=== PATIENT | male | born 1950 | race Caucasian/White ===

== ENCOUNTER 2019-11-13 05:02 | Inpatient (IN) ==
--- NOTE | 2019-10-17 14:52 | PAT Medication Instructions ---
Medication Instructions Date of Service October 17, 2019 Home Medications alprazolam 0.5 mg PO UD PRN 10/16/19 [History Confirmed 10/16/19] amlodipine 5 mg PO QAM 10/16/19 [History Confirmed 10/16/19] aspirin [Aspir-81] 81 mg PO DAILY 10/16/19 [History Confirmed 10/16/19] atenolol 25 mg PO QAM 10/16/19 [History Confirmed 10/16/19] atorvastatin 10 mg PO QAM 10/16/19 [History Confirmed 10/16/19] epinephrine [EpiPen] 0.3 mg IM UD PRN 10/16/19 [History Confirmed 10/16/19] irbesartan 150 mg PO QAM 10/16/19 [History Confirmed 10/16/19] latanoprost 1 drp OPHTHALMIC (EYE) HS 10/16/19 [History Confirmed 10/16/19] metformin 500 mg PO BID 10/16/19 [History Confirmed 10/16/19] timolol maleate 1 drp OPHTHALMIC (EYE) BID 10/16/19 [History Confirmed 10/16/19] Continue as directed epinephrine [EpiPen] 0.3 mg IM UD PRN(if needed) DO NOT take the morning of surgery irbesartan 150 mg PO QAM 10/16/19 [History Confirmed 10/16/19] metformin 500 mg PO BID 10/16/19 [History Confirmed 10/16/19] Take morning of surgery With a small sip of water, OTHERWISE NOTHING TO EAT OR DRINK AFTER MIDNIGHT: alprazolam 0.5 mg PO UD PRN (if needed) amlodipine 5 mg PO QAM 10/16/19 [History Confirmed 10/16/19] aspirin [Aspir-81] 81 mg PO DAILY 10/16/19 [History Confirmed 10/16/19] atenolol 25 mg PO QAM 10/16/19 [History Confirmed 10/16/19] atorvastatin 10 mg PO QAM 10/16/19 [History Confirmed 10/16/19] timolol maleate 1 drp OPHTHALMIC (EYE) BID 10/16/19 [History Confirmed 10/16/19] Take evening before surgery alprazolam 0.5 mg PO UD PRN (if needed) latanoprost 1 drp OPHTHALMIC (EYE) HS 01/07/20 [History Confirmed 10/16/19] metformin 500 mg PO BID 10/16/19 [History Confirmed 10/16/19] timolol maleate 1 drp OPHTHALMIC (EYE) BID 10/16/19 [History Confirmed 10/16/19] Other Notes If you have any questions please call us at [phone] or [phone] or [phone] or [phone]
--- NOTE | 2019-10-18 11:55 | Anesthesiology Consultation ---
Date of Service October 18, 2019 Assessment & Plan (1) Encounter for pre-operative examination: - Check BSG AM DOS Chart Review Chart Review: Acceptable Risk for Surgery (pending surgeon-ordered PCP clearance scheduled 10/31 (Dr. Hassan)) and Patient seen in Pre Admission Testing Teaching & Discussion Pre-Anesthesia Teaching/Discussion Notes: Instructed NPO after midnight before s urgery,except medications with 15 cc of water. Medication instructions provided according to the PAT guidelines. History Surgery Operation Date: 11/13/19 07:15 Proposed Procedures p Right Anterior Total Hip Arthroplasty - José Damon DO Height/Weight Height: 5 ft 6 in Weight: 62.9 kg Allergies Allergy/AdvReac Type Severity Reaction Status Date / Time BEE STINGS Allergy Severe ANAPHYLACTIC Uncoded 10/16/19 10:42 SHOCK Medications Home Medications Medication Instructions Recorded Confirmed Last Taken alprazolam 0.5 mg PO UD PRN 10/16/19 10/16/19 Unknown amlodipine 5 mg PO QAM 10/16/19 10/16/19 Unknown aspirin [Aspir-81] 81 mg PO DAILY 10/16/19 10/16/19 Unknown atenolol 25 mg PO QAM 10/16/19 10/16/19 Unknown atorvastatin 10 mg PO QAM 10/16/19 10/16/19 Unknown epinephrine [EpiPen] 0.3 mg IM UD PRN 10/16/19 10/16/19 Unknown irbesartan 150 mg PO QAM 10/16/19 10/16/19 Unknown latanoprost 1 drp OPHTHALMIC (EYE) HS 10/16/19 10/16/19 Unknown metformin 500 mg PO BID 10/16/19 10/16/19 Unknown timolol maleate 1 drp OPHTHALMIC (EYE) BID 10/16/19 10/16/19 Unknown Past Medical History Medical History Anxiety Diabetes NIDDM Glaucoma History of back problems lumbar region History of blood clots right calf related to trauma/injury (45+ years ago) History of osteoarthritis History of palpitations remotely on atenolol, med since discontinued/no palpitations recurrence Hyperlipidemia Hypertension Exercise / Class Metabolic Activity II 4-5 Yardwork/Stairs/Walk up hill (ONE FLIGHT OF STAIRS (NO CHEST PAIN/NO SOB)) Past Family History Family History Brother Family history of diabetes mellitus Past Surgical History Surgical History History of colonoscopy Past Anesthesia History No Hx of Anesthesia Complications and No Family Hx of Anesthesia Complications History of PONV No Hx of PONV and Hx of Motion Sickness Social History Smoking Status: Never smoker Do You Dip or Chew Tobacco: Yes (1/2 CAN DAILY, ADVISED NPO AM DOS) Hx Alcohol Use: Yes Alcohol type: beer (no ETOH use x 3 months) Hx Substance Use: No substance use type: does not use Review of Systems Patient denies chest pain, shortness of breath, dyspnea on exertion, cough, wheezing, palpitations. Physical Exam Vital Signs VITALS BP 140/92 P 81 TEMP 98.2 SP02 98%RA RESP 18 PHYSICAL Full neck and c-spine range of motion. Full TMJ range of motion. TMD 3 finger breaths Mallampati Score 3 Dentition: poor, rotted dentition, upper front missing tooth Lungs: clear throughout to auscultation Cardiac: regular rate and rhythm, no murmurs noted Spine: normal Carotid arteries: negative bruit Extremities: no edema Trimmed castle Testing Laboratory Results 10/18/19 12:31 10/18/19 12:31 PT 10.1 Seconds (9.0-12.0) 10/18/19 12:31 INR 1.0 (0.9-1.1) 10/18/19 12:31 APTT 26.4 Seconds (21.0-31.0) 10/18/19 12:31 Hemoglobin A1c 5.9 % (4.5-5.6) H 10/18/19 12:31 Urine Color Yellow 10/18/19 12:31 Urine Appearance Clear (Clear) 10/18/19 12:31 Urine pH 6.0 (4.5-7.5) 10/18/19 12:31 Ur Specific Mackey 1.021 (1.000-1.030) 10/18/19 12:31 Urine Protein 2+ (Negative) H 10/18/19 12:31 Urine Glucose (UA) Negative (Negative) 10/18/19 12:31 Urine Ketones Negative (Negative) 10/18/19 12:31 Urine Nitrite Negative (Negative) 10/18/19 12:31 Ur Leukocyte Esterase Negative (Negative) 10/18/19 12:31 Urine WBC (Auto) 1-5 /hpf (0-5) 10/18/19 12:31 Urine RBC (Auto) 5-10 /hpf (0-4) H 10/18/19 12:31 U Hyaline Cast (Auto) 1-5 /lpf (0-5) 10/18/19 12:31 U Epithel Cells (Auto) 0-5 /lpf (0-5) 10/18/19 12:31 Urine Bacteria (Auto) Negative (Negative) 10/18/19 12:31 Blood Type O Negative 10/18/19 12:31 Antibody Screen NEGATIVE 10/18/19 12:31 Electrocardiogram Date: 10/18/19 NSR at 75bpm. NS TWA. Chest X-Ray Date: 10/18/19 The cardiac and mediastinal contours are normal. There is no evidence of focal pulmonary consolidation. There is no evidence of failure. No pleural effusions are visualized.[There is a tiny left lower lobe calcified granuloma versus rib bone island. Rounded opacities within each mid lung zone are felt to represent nipple shadows. IMPRESSION: No active disease in the chest.
--- NOTE | 2019-10-18 13:07 | XRay Report ---
XR chest Pre-admission PA/Lat CLINICAL HISTORY: Preoperative chest COMPARISON STUDY: No previous studies for comparison. FINDINGS: The cardiac and mediastinal contours are normal. There is no evidence of focal pulmonary co nsolidation. There is no evidence of failure. No pleural effusions are visualized.[There is a tiny le ft lower lobe calcified granuloma versus rib bone island. Rounded opacities within each mid lung zone are felt to represent nipple shadows. IMPRESSION: No active disease in the chest. ACT 112: Negative or not required by law. Electronically signed by: Velasquez Jarvis M.D. 10/18/2019 1:06 PM
[2019-10-18 13:43] LABS: Basophils # (auto) 0.03 K/uL (0-0.2); Basophils % (auto) 0.4 %; Eosinophils # (auto) 0.03 K/uL (0-0.5); Eosinophils % (auto) 0.4 %; Hematocrit (blood only) 42.4 % (42-52); Hemoglobin 14.1 g/dL (14.0-18.0); Immature Granulocytes # (auto) 0.03 K/uL (0.00-0.02); Immature Granulocytes % (auto) 0.4 %; Lymphocytes % (auto) 20.8 %; Mean Corpuscular Hemoglobin 30.1 pg (25-34); Mean Corpuscular Hgb Conc 33.3 g/dL (32-36); Mean Corpuscular Volume 90.6 fL (80-100); Mean Platelet Volume 9.4 fL (7.4-10.4); Monocytes # (auto) 0.68 K/uL (0.11-0.59); Monocytes % (auto) 8.3 %; Neutrophils # (auto) 5.72 K/uL (1.4-6.5); Neutrophils % (auto) 69.7 %; Platelet Count 313 K/uL (130-400); RDW Coefficient of Variation 13.5 % (11.5-14.5); RDW Standard Deviation 43.9 fL (36.4-46.3); Red Blood Count 4.68 M/uL (4.7-6.1); White Blood Count 8.19 K/uL (4.8-10.8)
[2019-10-18 13:49] LABS: Partial Thromboplastin Time 26.4 Seconds (21.0-31.0); Prothrombin Time 10.1 Seconds (9.0-12.0)
[2019-10-18 13:52] LABS: Estimated Average Glucose 123 mg/dl; Hemoglobin A1C 5.9 % (4.5-5.6)
[2019-10-18 14:15] LABS: Appearance Urine Clear (Clear); Bacteria Urine Automated Negative (Negative); Bilirubin Urine Negative (Negative); Blood Urine Negative (Negative); Color Urine Yellow; Epithelial Cell Urine Auto 0-5 /lpf (0-5); Glucose Urine UA Negative (Negative); Ketones Urine Negative (Negative); Leukocyte Esterase Urine Negative (Negative); Nitrite Urine Negative (Negative); Protein Urine 2+ (Negative); Specific Gravity Urine 1.021 (1.000-1.030); Urobilinogen Urine Negative (Negative)
[2019-10-18 15:30] LABS: Albumin Level 3.8 gm/dl (3.4-5.0); BUN Creatinine Ratio 14.3 (10-20); Calcium 10.3 mg/dl (8.5-10.1); Creatinine Clr Calc Pharmacy 92.4 ml/min; Est GFR (African American) 113.9; Est GFR (Non-African American) 98.2; Potassium 4.1 mmol/L (3.5-5.1)
--- NOTE | 2019-10-19 06:09 | Electrocardiogram Report ---
Test Reason : Blood Pressure : / mmHG Vent. Rate : 075 BPM Atrial Rate : 075 BPM P-R Int : 150 ms QRS Dur : 076 ms QT Int : 368 ms P-R-T Axes : 058 043 005 degrees QTc Int : 410 ms Normal sinus rhythm Nonspecific T wave abnormality No previous ECGs available Confirmed by Ugo Byrne ([id number]) on 10/19/2019 6:09:14 AM Referred By: José Damon Confirmed By:Ugo Byrne
--- NOTE | 2019-11-12 20:21 | History & Physical Report ---
Date of Service November 12, 2019 Assessment & Plan (1) Degenerative joint disease of right hip: I have indicated the patient for right anterior total hip replacement. The risks, benefits and complications of surgery were explained to the patient which include but not limited to infection, acute blood loss, DVT/PE, injury to nerves, vessels, bone, soft tissue, arthrofibrosis, chronic pain, failure of the prosthesis, hip dislocation, leg length discrepancy, need for additional surgery, cardiac and pulmonary events and . The patient wished to proceed with surgery and informed consent was obtained at this time. We will plan for 81mg ASA BID post-operatively for DVT prophylaxis. Upon discharge the patient will be discharged home with home health services. Appropriate clearances by PCP were obtained. History of Present Illness Chief Complaint: Right hip pain/djd Primary Care Provider: Kaye Hassan MD The patient is a 69 year old male who presents with complaints of severe right hip pain and DJD. The patient has failed outpatient conservative treatments to this point which included NSAIDs, home exercise/walking program, patient declined further conservative treatments including IA corticosteroid injection. The patient's pain and limited function have progressed to the point where they severely hinder their activities of daily living and they no longer tolerate exercise programs. They are requesting to proceed with total hip replacement surgery. Allergies Allergy/AdvReac Type Severity Reaction Status Date / Time BEE STINGS Allergy Severe ANAPHYLACTIC Uncoded 11/13/19 05:33 SHOCK Home Medications Home Medications Medication Instructions Recorded Confirmed Type alprazolam 0.5 mg PO UD PRN 10/16/19 11/13/19 History amlodipine 5 mg PO QAM 10/16/19 11/13/19 History atenolol 25 mg PO QAM 10/16/19 11/13/19 History atorvastatin 10 mg PO QAM 10/16/19 11/13/19 History epinephrine [EpiPen] 0.3 mg IM UD PRN 10/16/19 11/13/19 History irbesartan 150 mg PO QAM 10/16/19 11/13/19 History latanoprost 1 drp OPHTHALMIC (EYE) HS 10/16/19 11/13/19 History metformin 500 mg PO BID 10/16/19 11/13/19 History timolol maleate 1 drp OPHTHALMIC (EYE) BID 10/16/19 11/13/19 History ibuprofen 600 mg PO Q6H PRN 11/13/19 11/13/19 History Past Med/Surg History Medical History Anxiety Diabetes NIDDM Glaucoma History of back problems lumbar region History of blood clots right calf related to trauma/injury (45+ years ago) History of osteoarthritis History of palpitations remotely on atenolol, med since discontinued/no palpitations recurrence Hyperlipidemia Hypertension Surgical History History of colonoscopy Family History Brother Family history of diabetes mellitus Social History Preferred Language: [place]ib[place] Communication Ability: Effective Automotive Service Director Required: No Beliefs That Will Affect Care: None Current Living Situation: Spouse, Family and Other Current Living Situation Comment: [facility] Other Information That Helps Us Care for You: No Feels Safe at Home: Yes Smoking Status: Never smoker Do You Dip or Chew Tobacco: Yes (1/2 CAN DAILY, ADVISED NPO AM DOS) ; Hx Alcohol Use: Yes Alcohol type: beer (no ETOH use x 3 months) Hx Substance Use: No Review of Systems Review of Systems: All systems reviewed & are unremarkable except as noted in HPI & below Constitutional: as per Subjective / HPI Physical Exam Physical Exam: RLE NVSI +EHL/FHL/TA/GS SILT grossly, +2 DP pulse, compartments soft NT, limited painful ROM, antalgic gait. Constitutional: WD/WN, vitals as above Eyes: PERRL, conjunctivae normal, anicteric sclerae ENMT: external ear and nose normal, oropharynx normal Neck: trachea midline, no thyromegaly Respiratory: normal respiratory effort, lungs clear to auscultation Cardiovascular: RRR, no murmur, no edema Gastrointestinal (Abdomen): normal bowel sounds, soft, nontender, no hepatosplenomegaly Musculoskeletal: no cyanosis or clubbing, extremities motor strength 5/5 Skin: no rashes, warm and dry Neurologic: patellar DTR's 2+ bilat, sensation intact Psychiatric: A+Ox3, euthymic affect Lymphatic: no cervical or axillary lymphadenopathy Results & Data Diagnostic Findings Multiple views of the hip demonstrates severe DJD with complete loss of the joint space. +osteophytes, +sclerosis, +subchondral cysts.
[2019-11-13] MEDS ORDERED: ROPIVACAINE 0.5% HCL/PF 150 MG, BUPIVACAINE 0.5% MPF 30 ML, EPINEPHrine 30MG/30ML (OR U... INFIL SCH (06:00)
[2019-11-13] MEDS ORDERED: LR 500ML BOLUS, THEN 15ML/HR IV SCH (06:00)
[2019-11-13] MEDS ORDERED: GABAPENTIN 300 MG CAP PO SCH (06:00)
[2019-11-13] MEDS ORDERED: FAMOTIDINE 20 MG TAB PO SCH (06:00)
[2019-11-13] MEDS ORDERED: CeleBREX 200 MG CAP PO SCH (06:00)
[2019-11-13] MEDS ORDERED: METOCLOPRAMIDE HCL 10 MG TABLET PO SCH (06:00)
[2019-11-13] MEDS ORDERED: CEFAZOLIN 1000MG 1,000 MG/7.5 ML SYR IV SCH (06:00)
[2019-11-13] MEDS ORDERED: TRANEXAMIC ACID 1,000 MG **IV Intra-op IV SCH (06:00)
[2019-11-13] MEDS ORDERED: TRANEXAMIC ACID 1,000 MG **IV Pre-op IV SCH (06:00)
[2019-11-13] MEDS ORDERED: dexAMETHasone 4 MG TAB PO SCH (06:00)
[2019-11-13] MEDS ORDERED: ACETAMINOPHEN 500 MG TAB PO SCH (06:00)
[2019-11-13] MEDS ORDERED: BUPIVACAINE 0.5 % 5 MG/1 ML PF 10ML VIAL ONE (06:35)
[2019-11-13] MEDS ORDERED: GLYCOPYRROLATE 0.2 MG/ML VIAL ONE (06:38)
[2019-11-13] MEDS ORDERED: LIDOCAINE HCL 2% 2 ML VIAL/AMP(20MG/ML) INFIL ONE (06:38)
[2019-11-13] MEDS ORDERED: KETAMINE HCL INJ 50 MG/ML 10 ML VIAL ONE (06:38)
[2019-11-13] MEDS ORDERED: ONDANSETRON INJ 2 MG/ML 2 ML VIAL ONE (06:38)
[2019-11-13] MEDS ORDERED: DEXAMETHASONE SOD INJ 4 MG/ML VIAL ONE (06:38)
[2019-11-13] MEDS ORDERED: MIDAZOLAM HCL 1 MG/ML 2ML VIAL ONE (06:38)
[2019-11-13] MEDS ORDERED: PROPOFOL IV EMULSION 10 MG/ML 20 ML VIAL IV ONE (06:38)
[2019-11-13] MEDS ORDERED: BACITRACIN INJ 50,000 UNIT VIAL ONE (06:59)
[2019-11-13] MEDS ORDERED: ORTHO JOINT ANESTHETIC ONE (06:59)
--- NOTE | 2019-11-13 07:08 | History & Physical Bridge Note ---
Date of Service November 13, 2019 History & Physical Bridge Note I have examined the patient, reviewed the History & Physical and in the interval since the performance of the History & Physical I have noted the following changes of clinical significance: no changes noted
[2019-11-13] MEDS ORDERED: fentaNYL citrate 100 MCG/2 ML VIAL IV PRN (07:14)
[2019-11-13] MEDS ORDERED: ONDANSETRON INJ 2 MG/ML 2 ML VIAL IV PRN ×2 (07:14→10:39)
[2019-11-13] MEDS ORDERED: ePHEDrine sulfate 50 MG/ML AMP IV PRN (07:14)
[2019-11-13] MEDS ORDERED: ATROPINE SULFATE 0.1 MG/ML 10ML SYR IV PRN (07:14)
--- NOTE | 2019-11-13 09:10 | Post Operative Brief Note ---
Immediate Post Op Note v1 Date of Surgery November 13, 2019 Pre & Post Diagnosis Operation Date: 11/13/19 07:15 Pre-Op Diagnosis: Unilateral Primary Osteoarthritis, Right Hip Post-Op Diagnosis: Unilateral Primary Osteoarthritis, Right Hip I identified the patient and participated in the time-out.: Yes Procedure Operation Date: 11/13/19 07:15 Actual Procedures p Right Anterior Total Hip Arthroplasty(Right) - José Damon DO Surgeon José Damon DO Manager Motor Rafy Hilton Estimated Blood Loss 85 Findings Consistent with Post-Op Diagnosis Fluids 1400 cc LR Specimens femoral head Anesthesia Type Spinal MAC Complications none Disposition Disposition: Recovery Room Overlapping Procedure I was present for: the critical portions of procedure. I was immediately available: during the entire case. Back up surgeon: was not required during procedure.
--- NOTE | 2019-11-13 09:12 | Operative Report ---
Post Operative Report Pre & Post Diagnosis Operation Date: 11/13/19 07:15 Pre-Op Diagnosis: Unilateral Primary Osteoarthritis, Right Hip Post-Op Diagnosis: Unilateral Primary Osteoarthritis, Right Hip I identified the patient and participated in the time-out.: Yes Procedure Operation Date: 11/13/19 07:15 Actual Procedures p Right Anterior Total Hip Arthroplasty(Right) - José Damon DO Surgeon José Damon DO Water Resource Agent Rafy Hilton Estimated Blood Loss 85 Findings Consistent with Post-Op Diagnosis Fluids 1400 cc LR Specimens femoral head Anesthesia Type Spinal MAC Complications none Disposition Disposition: Recovery Room Indications The patient is a 69-year-old male who presents with 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 I indicated the patient for a anterior total hip replacement and the risks and benefits were explained in detail which include but not limited to infection, bleeding, blood clot, damage to surrounding bone, nerves, vessels, soft tissue, hip dislocation, failure of the prosthesis, leg length discrepancy, need for additional surgery and . The patient agreed to proceed with replacement of the hip and informed consent was obtained. Appropriate clearances were obtained. Description of Procedure COMPONENTS USED: [employer] hip system: Acetabulum size 54, femur size 4 standard offset, femoral head 36+0, liner [id number], acetabular screw 25 mm x 1. DESCRIPTION OF PROCEDURE: Following satisfactory spinal anesthesia, the patient was placed supine on the OR table. The left leg was placed in the well leg rosas and the right leg in the traction device. The right leg was prepared with ChloraPrep and draped sterilely. A surgical timeout was performed, patient identified and site ravi verified. Appropriate antibiotics were given. A standard anterior approach in the interval between the sartorius and tensor muscles was performed. Dissection was carried down through subcutaneous tissues. Electrocautery was utilized for hemostasis. Circumflex femoral vessels were identified, tied and ligated. The anterior capsular fat pad was removed and the capsulotomy was performed revealing the arthritic femoral neck and head. A femoral neck cut was made with reciprocating saw and the bone fragments removed. The acetabular self-retraining retractor was placed. Acetabular reaming was completed under fluoroscopic guidance, a 54 shell was impacted into an anatomic position and secured with a dome screw. Local anesthetic was placed and following irrigation, the polyethylene liner was placed. The femur was placed into position of external rotation, extension and adduction. Femoral canal was prepared up to the size 4 standard offset. Trial reduction with a +0 neck length head showed good soft tissue tension, leg lengths restored, and good fit and fill of the proximal canal using fluoroscopic landmarks. The hip was dislocated. The trial component was removed. The final implant was placed. The hip was irrigated with sterile saline solution and reduced. A Betadine soak was performed. After 3 minutes, the hip was once more irrigated with copious sterile saline solution with bacitracin. Wendy-incisional soft tissue was injected utilizing [place] [employer] which includes a combination of Ropivicaine 0.5% 150mg, Bupivicaine 0.5%/Epinephrine 1:200,000 30ml, Toradol 30mg, Dexamethasone 4mg, Ketamine 10mg, Clonidine 100mcg and NSS 30ml solution. The capsule was then closed with 1-0 Vicryl interrupted figure of eight sutures. The fascia was closed with a running suture of #1 Vicryl, the subcutaneous tissues with 2-0 Vicryl and the skin with a running subcuticular stitch of 3-0 V-Loc. Dermabond prineo and a dry dressing were applied. The patient tolerated the procedure well and was transported to PACU in stable condition. Due to the complex nature of the procedure, the entire surgery was performed with the operational assistance of Rafy hilton PA-C. The culinary assistant, under direct supervision, was involved in the actual performance of all aspects of the surgical procedure including patient positioning, hemostasis, tissue retraction, instrument management and wound closure. I attest to the content of the Intraoperative Record and any orders documented therein. Any exceptions are noted below.
[2019-11-13] MEDS ORDERED: ePHEDrine sulfate 50 MG/ML SYR ONE (09:16)
--- NOTE | 2019-11-13 09:54 | Fluoroscopy Report ---
FL hip RT 1V CLINICAL HISTORY: RT ANTERIOR HIP COMPARISON STUDY: None. FLUOROSCOPY TIME: 44 seconds. FLUOROSCOPIC IMAGES: 2 FINDINGS: These images demonstrate anatomic alignment of the total right hip arthroplasty. There is a n acetabular screw. No fracture is identified by fluoroscopy. The hardware is intact and there are no unexpected radiopaque foreign bodies. IMPRESSION: Expected findings following total right hip arthroplasty. ACT 112: Negative or not required by law. Electronically signed by: Maximus Arizmendi M.D. 11/13/2019 9:52 AM
--- NOTE | 2019-11-13 10:06 | Anesthesiology Progress Note ---
Date of Service November 13, 2019 Anesthesia Post Procedure Vital Signs Vital Signs: Temp Pulse Pulse Resp BP Pulse Ox 11/13/19 09:55 97.9 F 79 18 127/86 96 11/13/19 09:45 79 15 131/91 96 11/13/19 09:39 97.0 F L 82 15 113/91 95 11/13/19 05:36 97.7 F 68 18 174/104 H 98 Pain Intensity Right Hip: Pain Intensity: 2 Transfer of Care Handoff Completed per policy Notes Mental Status: alert / awake / arousable and participated in evaluation Patient Amnestic to Procedure: Yes Nausea / Vomiting: adequately controlled Pain: adequately controlled Airway Patency, RR, SpO2: stable & adequate BP & HR: stable & adequate Hydration State: stable & adequate Neuraxial Anesthesia: was administered and sensory block is resolving Anesthetic Complications: no major complications apparent and Pt Satisfied with anesthetic care
--- NOTE | 2019-11-13 10:17 | XRay Report ---
XR hip 1V RT w pelvis HISTORY: 69 years-old Male IN PACU - A/P PELVIS and LATERAL HIP right hip total joint arthroplasty. History of degenerative joint disease COMPARISON: None TECHNIQUE: AP view of the pelvis with crosstable lateral view of the right hip FINDINGS: Right hip total joint arthroplasty demonstrates satisfactory alignment. Expected postsurgical soft ti ssue swelling and deep tissue air about the right hip. No acute fracture or retained foreign body. Ar terial calcifications are noted. Moderate left hip osteoarthritis. IMPRESSION: Right hip total joint arthroplasty with expected postoperative findings. ACT 112: Negative or not required by law. The above report was generated using voice recognition software. It may contain grammatical, syntax o r spelling errors. Electronically signed by: Hank Calles M.D. 11/13/2019 10:16 AM
[2019-11-13] MEDS ORDERED: NALOXONE HCL 0.4 MG/1 ML VIAL/CARP IV PRN (10:39)
[2019-11-13] MEDS ORDERED: MAGNESIUM HYDROXIDE SUSP 30 ML UDC PO PRN (10:39)
[2019-11-13] MEDS ORDERED: METOCLOPRAMIDE HCL INJ 5 MG/ML 2 ML VIAL IV PRN (10:39)
[2019-11-13] MEDS ORDERED: bisacodyL 10 MG SUPP PR PRN (10:39)
[2019-11-13] MEDS ORDERED: HYDROmorphone INJ 0.5 MG/0.5 ML SYR IV PRN (10:39)
[2019-11-13] MEDS ORDERED: PHARMACY GLYCEMIC MGMT CONSULT PRN (10:45)
[2019-11-13] MEDS ORDERED: GLUCOSE 40% GEL 15 GM TUBE PO PRN (11:00)
[2019-11-13] MEDS ORDERED: GLUCOSE 10 TABS/TUBE PO PRN (11:00)
[2019-11-13] MEDS ORDERED: GLUCAGON FOR INJ 1 MG VIAL IM PRN (11:00)
[2019-11-13] MEDS ORDERED: CARBOHYDRATES FOR HYPOGLYCEMIA PO PRN (11:00)
[2019-11-13] MEDS ORDERED: DEXTROSE 50% 50 ML SYRINGE IV PRN (11:00)
--- NOTE | 2019-11-13 11:03 | Pharmacy Report ---
Glycemic Control Consultation - Date of Service November 13, 2019 - Scope Scope: Glycemic Pharmacist consulted by Dr Damon on 11/13 for glycemic control and to write orders per [facility] inpatient glycemic control protocol - Objective Weight: 63.185 kg Accuchecks BSG (last 24hrs): 11/13/19 11/13/19 05:45 09:40 POC Glucose 104 H 155 H HbA1c: Hemoglobin A1c 5.9 % (4.5-5.6) H 10/18/19 12:31 - Recent Pertinent Medications Outpatient Anti-diabetic Regimen: * metformin 500 bid * A1c = 5.9 % 10/18/19 Risk Factors for Insulin Resistance: * Steroids: DXM 8 mg po, dxm 4 iv, ortho * Recent Surgery: POD 0 * Diet: T2DM - Assessment & Plan Assessment & Plan: ASSESSMENT: * 69 year old male now s/p total hip arthroplasty. Type 2 diabetic managed on metformin at home * Pharmacy consulted for glycemic management. Patient did receive steroids preop therefore anticipate steroid induced hyperglycemia * Will order both NPH/bolus insulin postop for glycemic control PLAN FOR INPATIENT GLYCEMIC CONTROL: * Holding outpatient oral diabetes medications * Basal insulin * NPH 12 units x 1 (~0.2 units/kg) - to help cover steroids * Bolus insulin * NovoLog per scale ACHS or Q6hrs while NPO * Goal Range: Low 110 mg/dL - High 140 mg/dL * Correction Factor: 30 mg/dL/unit * Nutritional / Prandial insulin per carb ratio of 1 unit per 10 grams CHO consumed * Please note that the plan above was derived based on current level of insulin resistance and hospital stress. These recommendations are appropriate for inpatient admission only. Plan of care upon discharge will need to be reassessed to avoid potential outpatient hypo/hyperglycemia. Thank you.
[2019-11-13] MEDS: SODIUM CHLORIDE 0.9% 1000ML 1,000 ML IV SCH ×2 (11:07→21:27)
[2019-11-13] MEDS: KETOROLAC TROMETHAMINE 15 MG/ML VIAL IV SCH ×3 (11:26→23:47)
[2019-11-13] MEDS ORDERED: NovoLIN-N (NPH) PER UNIT CHARGE SQ ONE (11:30)
[2019-11-13] MEDS: INSULIN ASPART 100 UNITS/ML 3 ML PEN SC SCH ×4 (11:58→23:49)
[2019-11-13] MEDS: ACETAMINOPHEN 500 MG TAB PO SCH ×2 (13:58→21:18)
[2019-11-13] MEDS: CEFAZOLIN 2000MG 2,000 MG/15 ML SYR IV SCH ×2 (13:59→23:39)
--- NOTE | 2019-11-13 20:09 | Orthopedic Progress Note ---
Date of Service November 13, 2019 Assessment & Plan (1) Degenerative joint disease of right hip: s/p R anterior JAZMIN -ancef x 24 -DVT ppx: SCDs, TEDs, 81mg ASA BID -WBAT RLE -PT/OT -PO XR: demonstrates well aligned well fixed prothesis without fracture dislocation -am labs -DC planning Subjective Post Operative Progress Note Patient seen sitting up in bed, comfortable, denies complaints, pain well controlled, no acute issues. Review of Systems Review of Systems: All systems reviewed & are unremarkable except as noted in HPI & below Constitutional: as per Subjective / HPI Physical Exam Physical Exam: RLE NVSI +EHL/FHL/TA/GS SILT grossly, +2 DP pulse, compartments soft NT, dressing cdi. Constitutional: WD/WN, vitals as above Results & Data ([facility]) Vital Signs (Past 12 Hours) Vital Signs Temp Pulse Pulse Pulse Resp BP Pulse Ox 11/13/19 15:37 36.7 C 110 H 18 150/97 H 96 11/13/19 13:24 36.6 C 102 H 18 148/89 H 96 11/13/19 12:09 36.5 C 90 18 142/84 H 97 11/13/19 11:16 74 18 139/85 96 11/13/19 10:49 36.4 C L 73 16 130/88 98 11/13/19 10:41 36.5 C 72 16 126/86 97 11/13/19 10:10 69 18 128/80 96 11/13/19 09:55 36.6 C 79 18 127/86 96 11/13/19 09:45 79 15 131/91 96 11/13/19 09:39 36.1 C L 82 15 113/91 95
[2019-11-13] MEDS ORDERED: SENNA 8.6 MG TAB PO SCH (21:00)
[2019-11-13] MEDS: DOCUSATE SODIUM 100 MG CAP PO SCH (21:17)
[2019-11-13] MEDS: OXYCODONE HCL IR 5 MG TAB (IMMEDIATE RELEASE) PO PRN (21:22)
[2019-11-14] MEDS: INSULIN ASPART 100 UNITS/ML 3 ML PEN SC SCH ×3 (04:04→13:06)
[2019-11-14 05:07] LABS: Basophils # (auto) 0.01 K/uL (0-0.2); Basophils % (auto) 0.1 %; Hemoglobin 9.6 g/dL (14.0-18.0); Immature Granulocytes # (auto) 0.05 K/uL (0.00-0.02); Immature Granulocytes % (auto) 0.4 %; Lymphocytes # (auto) 1.87 K/uL (1.2-3.4); Lymphocytes % (auto) 13.8 %; Mean Corpuscular Hemoglobin 29.5 pg (25-34); Mean Corpuscular Hgb Conc 34.3 g/dL (32-36); Mean Corpuscular Volume 86.2 fL (80-100); Mean Platelet Volume 8.2 fL (7.4-10.4); Monocytes # (auto) 1.32 K/uL (0.11-0.59); Monocytes % (auto) 9.7 %; Platelet Count 311 K/uL (130-400); RDW Coefficient of Variation 13.5 % (11.5-14.5); RDW Standard Deviation 42.5 fL (36.4-46.3); Red Blood Count 3.25 M/uL (4.7-6.1); White Blood Count 13.55 K/uL (4.8-10.8)
[2019-11-14 05:31] LABS: BUN Creatinine Ratio 14.2 (10-20); Creatinine Clr Calc Pharmacy 86.6 ml/min; Est GFR (African American) 110.5; Est GFR (Non-African American) 95.3; Potassium 3.9 mmol/L (3.5-5.1)
[2019-11-14] MEDS: KETOROLAC TROMETHAMINE 15 MG/ML VIAL IV SCH (06:20)
[2019-11-14] MEDS: ACETAMINOPHEN 500 MG TAB PO SCH ×2 (06:20→13:43)
[2019-11-14] MEDS: DOCUSATE SODIUM 100 MG CAP PO SCH (08:37)
--- NOTE | 2019-11-14 08:46 | Orthopedic Progress Note ---
Date of Service November 14, 2019 Assessment & Plan (1) Degenerative joint disease of right hip: s/p R anterior JAZMIN POD#1 -ancef x 24 -DVT ppx: SCDs, TEDs, 81mg ASA BID -WBAT RLE -PT/OT -PO XR: demonstrates well aligned well fixed prothesis without fracture dislocation -am labs: hgb 9.6 -DC planning home with HH Subjective Post Operative Progress Note Patient seen sitting up in bed, comfortable, denies complaints, pain well controlled, no acute issues. Denies f/c/n/v/sob/cp. Review of Systems Review of Systems: All systems reviewed & are unremarkable except as noted in HPI & below Constitutional: as per Subjective / HPI Physical Exam Physical Exam: RLE NVSI +EHL/FHL/TA/GS SILT grossly, +2 DP pulse, compartments soft NT, dressing cdi. Constitutional: WD/WN, vitals as above Results & Data ([facility]) Vital Signs (Past 12 Hours) Vital Signs Temp Pulse Pulse Resp BP Pulse Ox 11/14/19 08:42 87 159/89 H 11/14/19 08:05 36.8 C 88 16 174/104 H 98 11/14/19 04:02 36.8 C 78 16 158/87 H 96 11/13/19 23:46 36.9 C 78 16 158/91 H 97 Laboratory Results 11/14/19 11/14/19 11/14/19 Range/Units 08:31 04:52 04:52 WBC 13.55 H (4.8-10.8) K/uL RBC 3.25 L (4.7-6.1) M/uL Hgb 9.6 L (14.0-18.0) g/dL Hct 28.0 L (42-52) % MCV 86.2 (80-100) fL MCH 29.5 (25-34) pg MCHC 34.3 (32-36) g/dL RDW Std Deviation 42.5 (36.4-46.3) fL RDW Coeff of Jerome 13.5 (11.5-14.5) % Plt Count 311 (130-400) K/uL MPV 8.2 (7.4-10.4) fL Immature Gran % (Auto) 0.4 % Neut % (Auto) 76.0 % Lymph % (Auto) 13.8 % [place] % (Auto) 9.7 % Eos % (Auto) 0.0 % Baso % (Auto) 0.1 % Immature Gran # (Auto) 0.05 H (0.00-0.02) K/uL Neut # (Auto) 10.30 H (1.4-6.5) K/uL Lymph # (Auto) 1.87 (1.2-3.4) K/uL [place] # (Auto) 1.32 H (0.11-0.59) K/uL Eos # (Auto) 0.00 (0-0.5) K/uL Baso # (Auto) 0.01 (0-0.2) K/uL Sodium 133 L (136-145) mmol/L Potassium 3.9 (3.5-5.1) mmol/L Chloride 104 (98-107) mmol/L Carbon Dioxide 24 (21-32) mmol/L Anion Gap 5.0 (3-11) BUN 10 (7-18) mg/dl Creatinine 0.73 (0.6-1.4) mg/dl Est Cr Clr Drug Dosing 86.6 ml/min Est GFR ( Amer) 110.5 Est GFR (Non-Af Amer) 95.3 BUN/Creatinine Ratio 14.2 (10-20) Glucose 126 H (70-99) mg/dl POC Glucose 145 H (70-99) mg/dl Calcium 9.0 (8.5-10.1) mg/dl 11/14/19 11/13/19 11/13/19 Range/Units 04:02 23:47 20:42 WBC (4.8-10.8) K/uL RBC (4.7-6.1) M/uL Hgb (14.0-18.0) g/dL Hct (42-52) % MCV (80-100) fL MCH (25-34) pg MCHC (32-36) g/dL RDW Std Deviation (36.4-46.3) fL RDW Coeff of Jerome (11.5-14.5) % Plt Count (130-400) K/uL MPV (7.4-10.4) fL Immature Gran % (Auto) % Neut % (Auto) % Lymph % (Auto) % [place] % (Auto) % Eos % (Auto) % Baso % (Auto) % Immature Gran # (Auto) (0.00-0.02) K/uL Neut # (Auto) (1.4-6.5) K/uL Lymph # (Auto) (1.2-3.4) K/uL [place] # (Auto) (0.11-0.59) K/uL Eos # (Auto) (0-0.5) K/uL Baso # (Auto) (0-0.2) K/uL Sodium (136-145) mmol/L Potassium (3.5-5.1) mmol/L Chloride (98-107) mmol/L Carbon Dioxide (21-32) mmol/L Anion Gap (3-11) BUN (7-18) mg/dl Creatinine (0.6-1.4) mg/dl Est Cr Clr Drug Dosing ml/min Est GFR ( Amer) Est GFR (Non-Af Amer) BUN/Creatinine Ratio (10-20) Glucose (70-99) mg/dl POC Glucose 135 H 141 H 175 H (70-99) mg/dl Calcium (8.5-10.1) mg/dl 11/13/19 11/13/19 11/13/19 Range/Units 16:59 11:25 09:40 WBC (4.8-10.8) K/uL RBC (4.7-6.1) M/uL Hgb (14.0-18.0) g/dL Hct (42-52) % MCV (80-100) fL MCH (25-34) pg MCHC (32-36) g/dL RDW Std Deviation (36.4-46.3) fL RDW Coeff of Jerome (11.5-14.5) % Plt Count (130-400) K/uL MPV (7.4-10.4) fL Immature Gran % (Auto) % Neut % (Auto) % Lymph % (Auto) % [place] % (Auto) % Eos % (Auto) % Baso % (Auto) % Immature Gran # (Auto) (0.00-0.02) K/uL Neut # (Auto) (1.4-6.5) K/uL Lymph # (Auto) (1.2-3.4) K/uL [place] # (Auto) (0.11-0.59) K/uL Eos # (Auto) (0-0.5) K/uL Baso # (Auto) (0-0.2) K/uL Sodium (136-145) mmol/L Potassium (3.5-5.1) mmol/L Chloride (98-107) mmol/L Carbon Dioxide (21-32) mmol/L Anion Gap (3-11) BUN (7-18) mg/dl Creatinine (0.6-1.4) mg/dl Est Cr Clr Drug Dosing ml/min Est GFR ( Amer) Est GFR (Non-Af Amer) BUN/Creatinine Ratio (10-20) Glucose (70-99) mg/dl POC Glucose 138 H 150 H 155 H (70-99) mg/dl Calcium (8.5-10.1) mg/dl
[2019-11-14] MEDS ORDERED: IRBESARTAN 150 MG TAB PO SCH (09:00)
[2019-11-14] MEDS ORDERED: ATORVASTATIN 10 MG TAB PO SCH (09:00)
[2019-11-14] MEDS ORDERED: ASPIRIN 81 MG ECTAB PO SCH (09:00)
[2019-11-14] MEDS ORDERED: MULTIVITAMIN TAB PO SCH (09:00)
[2019-11-14] MEDS ORDERED: ATENOLOL 25 MG TABLET PO SCH (09:00)
[2019-11-14] MEDS ORDERED: AMLODIPINE BESYLATE 5 MG TAB PO SCH (09:00)
--- NOTE | 2019-11-14 09:49 | Pharmacy Report ---
Pharmacy Glycemic Short Note 2 - Date of Service November 14, 2019 - Glycemic Short BSG Results (Last 24 hours): 11/13/19 11/13/19 11/13/19 11:25 16:59 20:42 Glucose POC Glucose 150 H 138 H 175 H 11/13/19 11/14/19 11/14/19 23:47 04:02 04:52 Glucose 126 H POC Glucose 141 H 135 H 11/14/19 08:31 Glucose POC Glucose 145 H ASSESSMENT: 11/14 * Patient received total of 23 units of insulin yesterday, of which 12 units were NPH to help cover steroids * Fasting BSG 126 mg/dL - w/in range; will hold basal insulin and continue correctional insulin * Steroids likely wearing off / plan to restart home metformin at dinner 11/13 * 69 year old male now s/p total hip arthroplasty. Type 2 diabetic managed on metformin at home * Pharmacy consulted for glycemic management. Patient did receive steroids preop therefore anticipate steroid induced hyperglycemia * Will order both NPH/bolus insulin postop for glycemic control PLAN FOR INPATIENT GLYCEMIC CONTROL: * Holding outpatient oral diabetes medications - plan to restart home metformin 25 pm * Basal insulin - hold * Bolus insulin - loosen * NovoLog per scale ACHS or Q6hrs while NPO * Goal Range: Low 110 mg/dL - High 140 mg/dL * Correction Factor: 30 mg/dL/unit * Nutritional / Prandial insulin per carb ratio of 1 unit per 12 grams CHO consumed * Please note that the plan above was derived based on current level of insulin resistance and hospital stress. These recommendations are appropriate for inpatient admission only. Plan of care upon discharge will need to be reassessed to avoid potential outpatient hypo/hyperglycemia. Thank you. PLAN FOR DISCHARGE: * A1C = 5.9% * Goal A1C less than 7% based on age and comorbidities * Would recommend continuation of home metformin at discharge as long as patient does not report low BSGs * Would continue patient self management (healthy lifestyle, SMBG)
[2019-11-14] MEDS: OXYCODONE HCL IR 5 MG TAB (IMMEDIATE RELEASE) PO PRN (10:17)
[2019-11-14] MEDS ORDERED: METFORMIN HCL 500 MG TAB PO SCH (17:00)
--- NOTE | 2019-11-14 20:00 | Discharge Summary ---
Date of Service November 14, 2019 Admission HPI Per Admitting Provider The patient is a 69 year old male who presents with complaints of severe right hip pain and DJD. The patient has failed outpatient conservative treatments to this point which included NSAIDs, home exercise/walking program, patient declined further conservative treatments including IA corticosteroid injection. The patient's pain and limited function have progressed to the point where they severely hinder their activities of daily living and they no longer tolerate exercise programs. They are requesting to proceed with total hip replacement surgery. Principal Diagnosis Right anterior total hip replacement Discharge Exam RLE NVSI +EHL/FHL/TA/GS SILT grossly, +2 DP pulse, compartments soft NT, dressing cdi. Constitutional WD/WN, vitals as above Discharge Data Allergies Allergy/AdvReac Type Severity Reaction Status Date / Time BEE STINGS Allergy Severe ANAPHYLACTIC Uncoded 11/13/19 05:33 SHOCK Consultations 11/14/19 08:00 Consult Case Management - Discharge Planning Routine Procedures Performed Operation Date: 11/13/19 07:15 Actual Procedures p Right Anterior Total Hip Arthroplasty(Right) - José Damon DO Ordered Studies 11/13/19 07:15 FL fluoroscopy <1hr Routine FL hip RT 1V Routine Hospital Course (1) Degenerative joint disease of right hip: The patient is a 69 -year-old male who presents with long standing history of severe right hip DJD and failed outpatient conservative treatments. The patient's symptoms have progressed to the point where it has been difficult to perform even normal activities of daily living. I indicated the patient for a right anterior total hip arthroplasty, the risks, benefits and complications of the procedure include but not limited to infection, bleeding, damage to bone, nerves, vessels, surrounding soft tissue, may develop blood clots, loss of function, leg length discrepancy, dislocation, failure of the components, loosening of the components, the need for additional surgery and . The patient wished to proceed with surgery at this time and informed consent was obtained. Hospital Course: On 11/13/19 the patient was taken to the operating room, adequate anesthesia administered and underwent a right anterior total hip arthroplasty. The patient tolerated the procedure well and was taken to the PACU in stable condition. Post-operatively the patient was started on a DVT ppx medication and given appropriate IV antibiotics. Consults were placed to physical therapy, occupational therapy and case management. On POD#1, the patient did well overnight and their pain was well controlled. Labs were drawn and the Hgb was 9.6. The patient progressed well with PT. Dressings were changed at this time and the incision was clean, dry and intact. On POD#2, The patients hospital stay was relatively uneventful and they were deemed stable by the orthopedic team and consultants to be discharged home with HH on 11/14/19. Discharge Instructions: Upon discharge the patient may weight bear as tolerates through their operative extremity. They were instructed to keep the incision clean and dry at all times. The patient may shower but should not submerge the incision, avoid bathing, pools and hot tubes. The patient was given a script for pain medication and should take as instructed. The patient was given a script for DVT ppx 81mg ASA BID and should take as directed. The patient was instructed to not drive or travel for long distances until cleared to do so. If the patient develops any symptoms of fevers, chills, nausea, vomiting, increased redness, swelling, pain or drainage from the surgical site, they should notify the office and/or proceed to the nearest emergency room. The patient should follow up in 10-14 days after surgery for their routine post-operative follow-up appointment and should call the office to confirm the date and time. s/p R anterior JAZMIN POD#1 -ancef x 24 -DVT ppx: SCDs, TEDs, 81mg ASA BID -WBAT RLE -PT/OT -PO XR: demonstrates well aligned well fixed prothesis without fracture dislocation -am labs: hgb 9.6 -DC planning home with HH Total Time Total Time Spent Total Time Spent (In Minutes): 30 minutes Discharge Plan Discharge Items Patient Disposition: Home - Home Health Services Reason For Visit: Unilateral Primary Osteoarthritis, Right Hip Discharge Diagnosis: Right anterior total hip replacement Condition on Discharge: Good Activity: Per Instructions section Lifting: Wait until after follow-up appointment Bathing: Keep incision dry Bathing Comment: No bathing, pools or hot tubs. Sexual Activity: Wait until after follow-up appointment Exercise/Sports: Wait until after follow-up appointment Driving/Machine Use: No driving Weightbearing: Full weightbearing Non-emergency contact: Primary Care Provider and Surgeon Call non-emergency contact if: you have any medication questions, your symptoms worsen, your pain is not controlled, your pain is worsening, your pain is unusual for you, your pain is concerning for you, you have a fever, your temperature is above 101, your wound has increased redness, your wound has increased drainage and your wound pain has increased Follow-up/Referrals: Kaye Hassan MD [Primary Care Provider] - Diet: Carb Consistent or DM2 Addtl Attending Provider Instructions: ACTIVITY RECOMMENDATIONS: SELF CARE INSTRUCTIONS AFTER TOTAL HIP REPLACEMENT : Direct Anterior Approach Until the incision and soft tissues around your hip have healed, there is a possibility that the hip prosthesis could dislocate. A. Hip flexion ( Up & Down out of chair or steps ) may be difficult. This is normal. B. Numbness in front of the thigh is also normal for a few weeks. C. Use hand rails when walking on stairs. D. Wear low heeled shoes with non-slip soles. E. Be sure that your floors are free of things that could trip you - throw rugs, electrical cords, small objects. Avoid wet and waxed floors, especially with crutches and canes. F. Try to walk several times a day with rest periods between. G. Continue with all the exercises taught to you in the hospital. Again, make walking a part of your daily routine. SPECIAL CARE INSTRUCTIONS: VERY IMPORTANT TO READ AND REVIEW A. You may still be at risk for phlebitis and blood clots. 1. Wear surgical stockings (JAMES hose) for 2 weeks after surgery to improve circulation and reduce swelling. 2. Take Aspirin 81mg twice daily for 4 weeks or as directed by your doctor. This is your blood thinner. 3. High risk patients may be prescribed a stronger blood thinner if necessary. 4. If you are on Coumadin normally, your family doctor/gear machine operator should monitor your blood work. Expect a phone call the day of or the day after bloodwork is drawn to adjust your dosage. B. You must take antibiotics before having dental work, bladder, bowel and other surgery. Your doctor will provide you with a permanent card to carry describing precautions. C. Call [facility] if you have a fever, redness or swelling around the incision, cloudy drainage from incision, or sudden increase in pain in your hip, not relieved by your regular pain medication. D. Please call the office at if you have any concerns or questions about your operation or recovery. * YOU MAY SHOWER, NO TUB BATHS UNTIL CLEARED BY YOUR DOCTOR. - Keep an extra close eye on the top portion of your incision. Be sure to keep clean & dry. * WEAR JAMES HOSE 20 HOURS PER DAY FOR 2 WEEKS. * YOU MAY PROGRESS FROM A WALKER, TO A CANE, TO INDEPENDENT AT YOUR OWN PACE. * MOST PATIENTS WILL HAVE HOME NURSING FOR THERAPY. IF YOU DECIDE TO DO OUTPATIENT PHYSICAL THERAPY, PLEASE SCHEDULE THIS 3 TIMES PER WEEK. * DERMABOND Prineo- This is a mesh tape dressing that is covered with glue. It should remain in place until the incision is properly healed, usually 10-14 days. This dressing is designed to naturally slough off. You may trim the excess mesh tape as it peels off. Incision may be briefly wet in a shower. Dry immediately by blotting with a clean, dry towel. Do not bath or swim until instructed by your doctor. Do not scratch, rub, or pick at the dressing. Do not apply any topical ointments or lotions until dressing is completely removed and/or instructed by your doctor. There may be a small piece of suture material at one end of your incision. Do not pull or trim this. If it is bothersome or catching on clothing, you may cover it with a band-aid. FOLLOW UP VISIT: If appointment is not already scheduled: Please call [facility] to make a follow-up appointment for 2 weeks after your surgery at . Pending Studies at Discharge: No Stand-Alone Forms: My [facility], Opioid Pain Management, Smoking Cessation Medications and DC Order Prescriptions: New celecoxib [Celebrex] 200 mg Capsule 200 mg PO BID PRN (Reason: pain/inflammation) Qty: 28 RF: 0 aspirin [Ecotrin Low Strength] 81 mg Tablet,Delayed Release (Dr/Ec) 81 mg PO BID 28 Days Qty: 56 RF: 0 acetaminophen 500 mg Tablet 1,000 mg PO Q8 PRN (Reason: pain/fevers) Qty: 90 RF: 0 oxycodone 5 mg Tablet 5 mg PO Q6H MDD 6 tabs PRN (Reason: pain) Qty: 30 RF: 0 sennosides [Senokot] 8.6 mg Tablet 17.2 mg PO HS PRN (Reason: constipation) Qty: 28 RF: 0 Continued latanoprost 0.005 % Drops 1 drp OPHTHALMIC (EYE) HS RF: 0 metformin 500 mg Tablet 500 mg PO BID RF: 0 atorvastatin 10 mg Tablet 10 mg PO QAM RF: 0 atenolol 25 mg Tablet 25 mg PO QAM RF: 0 amlodipine 5 mg Tablet 5 mg PO QAM RF: 0 timolol maleate 0.25 % Drops 1 drp OPHTHALMIC (EYE) BID RF: 0 irbesartan 150 mg Tablet 150 mg PO QAM RF: 0 epinephrine [EpiPen] 0.3 mg/0.3 mL Auto-Injector 0.3 mg IM UD PRN (Reason: BEE STING ALLERGY) RF: 0 Discontinued alprazolam 0.5 mg Tablet 0.5 mg PO UD PRN (Reason: Sleep) RF: 0 ibuprofen 600 mg Tablet 600 mg PO Q6H PRN (Reason: Pain) RF: 0 Discharge Orders: Discharge Order (Routine); Ordered 11/14/19 Ordered By: Oh Lara/Other Patient Handouts: Surgery Prevent DVT After, ED Stockings James Admission Data Admit Date/Time: 11/13/19 09:41 Attending Provider: José Damon Admit Provider: José Damon Primary Care Provider: Kaye Hassan Other Interventions: Discharge Summary Assessment (RN) Last Done: 11/14/19 10:34 DC Date/Time DO NOT enter until pt leaves facility: 11/14/19 15:40
[2019-11-14] MEDS ORDERED: CeleBREX 200 MG CAP PO SCH (21:00)
== END 2019-11-14 15:40 | disposition home health service (06) | DRG 470 ==
LOC: ASU 05:02 → 3E 09:41